=== PATIENT | female | born 1980 | race Hispanic/Latino ===

== ENCOUNTER 2019-06-12 12:06 | Emergency (ER) | payer OTHER ==
[2019-06-12] MEDS ORDERED: ACETAMINOPHEN 325 MG TAB ONE (12:21)
== END 2019-06-12 13:14 | disposition home or self-care (01) ==
LOC: EDH 12:06
DX: S93.492A Sprain of other ligament of left ankle, initial encounter (principal); W18.39XA Other fall on same level, initial encounter; Y93.01 Activity, walking, marching and hiking; Y92.098 Other place in other non-institutional residence as the place of occurrence of the external cause; Y99.8 Other external cause status
CPT/HCPCS: 73610